=== PATIENT | female | born 1990 | race Hispanic/Latino ===

== ENCOUNTER 2021-08-14 09:09 | Emergency (ER) | payer OTHER ==
[2021-08-14] MEDS ORDERED: HYDROcodone/Acetaminophen 5/325 mg Tablet ONE ×2 (10:06→10:09)
[2021-08-14] MEDS ORDERED: Lidocaine 1% w/Epinephrine 1:100K 20 ML VIAL ONE (10:39)
[2021-08-14] MEDS ORDERED: Boostrix 0.5 ML (Tdap) VIAL ONE (12:50)
[2021-08-14] MEDS ORDERED: Bacitracin 1 PK ONE (12:51)
== END 2021-08-14 13:00 | disposition home or self-care (01) ==
LOC: ERS 09:09
DX: S51.852A Open bite of left forearm, initial encounter (principal); S51.812A Laceration without foreign body of left forearm, initial encounter; W54.0XXA Bitten by dog, initial encounter; Z23 Encounter for immunization
CPT/HCPCS: 12002; 90471; 90715